=== PATIENT | male | born 1990 | race African-American/Black ===

== ENCOUNTER 2019-09-21 23:24 | Emergency (ER) | payer MEDICAID ==
[~2019-09-21] VITALS: Ht 170.2 cm; Wt 105.0 kg
[2019-09-21 23:45] VITALS: BP 146/83
== END 2019-09-22 05:28 | disposition left against medical advice (07) ==
LOC: ER 23:24
DX: Z53.21 Procedure and treatment not carried out due to patient leaving prior to being seen by health care provider (principal)

== ENCOUNTER 2021-04-04 15:51 | Emergency (ER) | payer MEDICAID ==
[~2021-04-04] VITALS: Ht 170.2 cm; Wt 100.0 kg
[2021-04-04] MEDS ORDERED: SODIUM CHLORIDE 0.9% 1,000 ML IV ONE (16:30)
[2021-04-04 16:51] LABS: CHLORIDE 104 mEq/L (98-107)
[2021-04-04 16:59] LABS: HEMATOCRIT. 42.2 % (42.0-52.0); HEMOGLOBIN. 14.6 g/dL (14.0-18.0); MEAN CORPUSCULAR VOLUME 95.6 fL (80.0-94.0); MEAN PLATELET VOLUME 7.2 fl (7.4-10.4); PLATELET 264 x1000/uL (130-400); RED BLOOD CELL COUNT 4.42 mill/uL (4.7-6.1); RED CELL DISTRIBUTION WIDTH 14.3 % (11.6-14.6)
[2021-04-04 17:21] LABS: PLATELET ESTIMATE NORMAL
[2021-04-04 17:44] LABS: CLARITY URINE CLEAR (CLEAR); COLOR URINE YELLOW (YELLOW); KETONES URINE TRACE (NEGATIVE); LEUKOCYTE ESTERASE URINE NEGATIVE (NEGATIVE); NITRITE URINE NEGATIVE (NEGATIVE); OCCULT BLOOD URINE NEGATIVE (NEGATIVE); PROTEIN URINE 1+ (NEGATIVE); SPECIFIC GRAVITY URINE 1.017 (1.005-1.030); UROBILINOGEN URINE 0.2 E.U./dL (0.2-1.0)
[2021-04-04 18:24] VITALS: BP 149/75
== END 2021-04-04 18:30 | disposition home or self-care (01) ==
LOC: ER 15:51
DX: E86.0 Dehydration (principal); R53.1 Weakness; I10 Essential (primary) hypertension; G47.00 Insomnia, unspecified; F12.10 Cannabis abuse, uncomplicated; Z88.8 Allergy status to other drugs, medicaments and biological substances; Z98.890 Other specified postprocedural states
CPT/HCPCS: 36415; 80053; 81003; 82962; 85025; 93005; 96360; 99284; J7030; Z7610

== ENCOUNTER 2024-09-29 07:08 | Emergency (ER) | payer MEDICAID, OTHER ==
[~2024-09-29] VITALS: Ht 170.2 cm; Wt 115.6 kg
[2024-09-29 07:31] VITALS: O2SAT 99
[2024-09-29] MEDS ORDERED: FLUT9.9S BOTHNSTRLS (10:04)
[2024-09-29] MEDS ORDERED: BENZ100C86 MT (10:06)
[2024-09-29 11:39] VITALS: BP 148/87; PULSE 88; RESP 16; TEMP 36.89184; O2SAT 99
== END 2024-09-29 13:08 | disposition home or self-care (01) ==
LOC: ER 07:24
DX: B34.9 Viral infection, unspecified (principal); R09.82 Postnasal drip; F12.10 Cannabis abuse, uncomplicated; I10 Essential (primary) hypertension; Z88.6 Allergy status to analgesic agent; Z98.890 Other specified postprocedural states
CPT/HCPCS: 71045; 99283